=== PATIENT | male | born 1955 | race Caucasian/White ===

== ENCOUNTER 2020-03-07 20:21 | Observation (INO) | payer MEDICARE, BC ==
[~2020-03-07] VITALS: Ht 170.2 cm; Wt 75.6 kg
[2020-03-07 21:17] LABS: BASO # 0.1 (0.0-0.2); BASO % 0.6 % (0.0-2.0); EOS # 0.1 (0.0-0.7); EOS % 0.9 % (0-4.0); GRAN # 7.5 (1.4-6.5); GRAN % 68.5 % (42.2-75.2); HEMOGLOBIN 16.8 g/dl (13.5-18.0); LYMPH # 2.2 (1.2-3.4); LYMPH % 19.8 % (20.0-51.0); MEAN CELL VOLUME 83 fl (80.0-100.0); MEAN CORPUSCULAR HEMOGLOBIN 28 pg (27.0-31.0); MEAN CORPUSCULAR HGB CONC 34 g/dl (33.0-37.0); MEAN PLATELET VOLUME 10.4 fl (7.4-10.4); MONO # 1.1 (0.1-0.6); MONO % 9.7 % (1.7-9.3); PLATELET COUNT 264 K/mm3 (130-400); RED BLOOD COUNT 6.01 M/mm3 (4.20-5.60); REDCELL DISTRIBUTION WIDTH-CV 13.6 % (11.5-14.5)
[2020-03-07 21:42] LABS: ALBUMIN 4.6 gm/dL (3.5-5.0); BILIRUBIN,TOTAL 0.9 mg/dL (0.0-1.0); C-REACTIVE PROTEIN 0.6 mg/dL (0.0-0.9); CALCIUM 9.7 mg/dL (8.4-10.2); CREATININE, serum 1.03 (0.66-1.25); POTASSIUM 4.1 mmol/L (3.4-5.0); TOTAL PROTEIN 7.9 gm/dL (6.4-8.2)
[2020-03-07 21:48] LABS: ERYTHROCYTE SEDIMENTATION RATE 6 mm/hr (0-30)
[2020-03-08] VITALS (7 sets, daily range): BP systolic 144–195; BP diastolic 65–100; PULSE 58–73; TEMP 97.5–98.6
--- NOTE | 2020-03-08 05:16 | NUR ---
Patient continues to have some vision loss to left eye, but states that it has gotten slightly better since starting yesterday. Denies having pain and discomfort. Resting in bed with call light within reach. Aware of MRI scheduled for this morning. Voices no questions, needs, or concerns at this time.
[2020-03-08 06:56] LABS: CHOLESTEROL RISK RATIO 5.8
--- NOTE | 2020-03-08 09:22 | NUR ---
Assessment complete. Patient resting comfortably on bed when entering. Patient states that he feels his sight in his left eye is a little bit better than it was before but it is still very bryant and hazy. Denies pain or discomfort at this time. Pt has minimal needs at this time. He is aware of his POC. Call light is in reach.
[2020-03-08 10:19] LABS: BASO # 0.1 (0.0-0.2); BASO % 0.8 % (0.0-2.0); EOS # 0.2 (0.0-0.7); EOS % 2.2 % (0-4.0); GRAN # 6.7 (1.4-6.5); GRAN % 66.8 % (42.2-75.2); HEMOGLOBIN 16.8 g/dl (13.5-18.0); LYMPH % 19.9 % (20.0-51.0); MEAN CELL VOLUME 84 fl (80.0-100.0); MEAN CORPUSCULAR HEMOGLOBIN 29 pg (27.0-31.0); MEAN CORPUSCULAR HGB CONC 34 g/dl (33.0-37.0); MEAN PLATELET VOLUME 11.4 fl (7.4-10.4); MONO # 0.9 (0.1-0.6); MONO % 9.1 % (1.7-9.3); PLATELET COUNT 231 K/mm3 (130-400); RED BLOOD COUNT 5.85 M/mm3 (4.20-5.60); REDCELL DISTRIBUTION WIDTH-CV 14.3 % (11.5-14.5)
[2020-03-08] MEDS ORDERED: LIPITOR 40MG TA40 MG PO (15:49)
[2020-03-08] MEDS ORDERED: ASPIRIN 81M81 MG/TA2 PO (15:49)
[2020-03-08] MEDS ORDERED: HCTZ 25MG TAB25 MG PO (15:49)
--- NOTE | 2020-03-08 16:58 | NUR ---
Patient had an uneventful shift. No complaints of pain or discomfort. Minimal needs throughout the day. at the bedside for most of the day. He is aware of his POC at this time. Understands he will discharge soon. No other needs at this time. Call light is in reach.
[2020-03-08] MEDS ORDERED: CLEVER CHOICE MC (17:51)
--- NOTE | 2020-03-08 19:08 | NUR ---
PAtient left the floor at this time. Discharge instructions were discussed, no further questions or concerns.
== END 2020-03-08 19:08 | disposition home or self-care (01) ==
LOC: COL.ER 20:21 → MEDICAL 23:04
PROVIDERS: Emergency Medicine; Nurse Practitioner Primary Care; ADMIT Hospitalist
DX: I63.9 Cerebral infarction, unspecified (principal); H53.132 Sudden visual loss, left eye; R73.9 Hyperglycemia, unspecified; I16.0 Hypertensive urgency; M19.90 Unspecified osteoarthritis, unspecified site; Z88.8 Allergy status to other drugs, medicaments and biological substances; I10 Essential (primary) hypertension; I34.0 Nonrheumatic mitral (valve) insufficiency
CPT/HCPCS: A9585; J0360; J1650; Q9967